=== PATIENT | male | born 1990 | race Two or more races ===

== ENCOUNTER 2017-08-13 16:41 | Emergency (ER) | payer OTHER ==
[~2017-08-13] VITALS: Ht 163.8 cm; Wt 62.1 kg
--- NOTE | ~2017-08-13 | CR63 ---
[facility] A Service of [facility] RADIOLOGY TEXT RESULTS PATIENT: NILSA AMBROSIO LOCATION: [place] : [birth year] UNIT #: [id number] AGE: [address]: DEMETRIS HO APRN SEX: M ORDER DR: [id number] [facility] [address] [place], [place] [address] [id number] E MR#: [id number] Acc #: [id number] NAME: NILSA AMBROSIO : 1990 SEX: M STUDY DATE/TIME: 08/13/2017 18:41 UNIT: [facility] ROOM: STUDY DESCRIPTION: CR Chest 2 View Attending Physician: Demetris Ho Aprn Ordering Physician: Ed Kush Kaufman M.D. Primary Care Physician: Dereck Pressley Jr., A.P.R.N. MEDICAL IMAGING REPORT This report is preliminary unless electronic signature is present EXAM Two-view chest HISTORY Shortness of air with activity, fever; symptoms began 4 days ago. FINDINGS PA and lateral examination of the chest upright shows a good expansion of the parenchyma with a normal distribution of the pulmonary vascularity. There is no indication of congestion, effusion, infiltrate, tumor, or nodular density. The pleural reflections and diaphragmatic contours are normal. The cardiac silhouette and mediastinal anatomy is within normal limits. IMPRESSION Normal chest. Dictated by... Abdoul Snow M.D. THIS IS AN ELECTRONICALLY VERIFIED REPORT Abdoul Snow M.D. at 08/14/2017 3:12 PM Dai TD: 08/14/2017 11:56 JOB #: [id number] MEDICAL IMAGING REPORT Page 1 of 1 COPY
[2017-08-13 17:54] LABS: INFLUENZA A NEG (NEG); INFLUENZA B NEG (NEG)
[2017-08-13 18:52] LABS: BASOPHIL% 0.2 % (0-2.5); EOSINOPHIL% 0.2 % (0.0-7.0); HEMATOCRIT 41.3 % (38.0-50.0); HEMOGLOBIN 14.5 gm/dL (13.0-16.0); LYMPHOCYTE# 1.7 X10e3 (1.0-3.5); LYMPHOCYTE% 16.8 % (17.0-45.0); MEAN CELL VOLUME 85.3 FL (83-96); MEAN CORPUSCULAR HEMOGLOBIN 29.9 PG (28-34); MEAN PLATELET VOLUME 8.6 FL (6.5-11.5); MONOCYTE# 1.2 X10e3 (0-1.0); MONOCYTE% 11.4 % (3.0-12.0); NEUTROPHIL# 7.3 X10e3 (1.5-7.1); NEUTROPHIL% 71.4 % (40-75); PLATELET COUNT 154 X10e3 (140-420); RED BLOOD COUNT 4.84 X10e (3.90-5.60); RED CELL DISTRIBUTION WIDTH 12.7 % (11.0-15.5); WHITE BLOOD COUNT 10.1 X10e3 (4.0-10.5)
[2017-08-13 18:55] LABS: DIFF IND NO
[2017-08-13 19:11] LABS: BUN/CREATININE RATIO 21.11; CALCIUM SERUM 9.1 mg/dL (8.4-10.2); CREATININE SERUM 0.9 mg/dL (0.6-1.4); GLOM FILT RATE Estimated 115.8 mL/min (>60); POTASSIUM 4.1 mmol/L (3.5-5.1)
[2017-08-13 20:07] LABS: URINE SOURCE CLEAN CATCH
[2017-08-13 20:12] LABS: URINE APPEARANCE CLEAR; URINE BILIRUBIN NEG (NEG); URINE BLOOD NEG (NEG); URINE COLOR YELLOW; URINE GLUCOSE NEG (NEG); URINE KETONE TRACE (NEG); URINE LEUKOCYTE ESTERASE NEG (NEG); URINE NITRATE NEG (NEG); URINE PH 5.5 (5-8); URINE PROTEIN NEG (NEG); URINE SPECIFIC GRAVITY 1.022 (1.003-1.035)
[2017-08-13 20:27] LABS: CULTURE INDICATED? NO
== END 2017-08-13 21:12 | disposition home or self-care (01) ==
LOC: CED 16:41 → CFTX 16:41
PROVIDERS: Nurse Practitioner
DX: R50.9 Fever, unspecified (principal); R51 Headache; R11.0 Nausea; Z79.899 Other long term (current) drug therapy
CPT/HCPCS: 36415; 71020; 80048; 81003; 85025; 86308; 87804; 99284